=== PATIENT | male | born 2000 | race Caucasian/White ===

== ENCOUNTER 2022-03-16 23:14 | Outpatient (CLI) | payer OTHER | END 2022-03-16 23:59 | disposition critical access hospital (66) | LOC: EMS 23:14 | DX: F41.9 Anxiety disorder, unspecified (principal) | CPT/HCPCS: A0425; A0427 ==

== ENCOUNTER 2022-03-16 23:42 | Emergency (ER) | payer OTHER ==
[2022-03-17 00:20] LABS: BASOPHILS % (AUTO) 0.5 %; EOSINOPHILS % (AUTO) 0.7 %; HCT - HEMATOCRIT 39.4 % (42.0-52.0); HGB - HEMOGLOBIN 12.7 g/dL (14.0-18.0); LYMPHOCYTES # (AUTO) 1.4 10^3/uL (1.5-3.5); LYMPHOCYTES % (AUTO) 26.3 %; MEAN CORPUSCULAR HGB CONC 32.2 g/dL (32.0-36.0); MEAN CORPUSCULAR VOLUME 86.8 fL (80.0-94.0); MEAN PLATELET VOLUME 10.3 fL (7.4-11.4); MONOCYTES # (AUTO) 0.5 10^3/uL (0.0-1.0); MONOCYTES % (AUTO) 9.1 %; NEUTROPHILS # (AUTO) 3.4 10^3/uL (1.5-6.6); PLT - PLATELET COUNT 273 10^3/uL (130-450); RED BLOOD COUNT 4.54 10^6/uL (4.70-6.10); RED CELL DISTRIBUTION WIDTH 11.5 % (12.0-15.0); WHITE BLOOD COUNT 5.5 x10^3/uL (4.8-10.8)
[2022-03-17 00:31] LABS: ALBUMIN 4.2 g/dL (3.2-5.5); ALBUMIN/GLOBULIN RATIO 1.5 (1.0-2.2); BILIRUBIN,TOTAL 0.3 mg/dL (0.2-1.0); CALCIUM 8.9 mg/dL (8.5-10.3); CREATININE 0.8 mg/dL (0.6-1.2); POTASSIUM 3.3 mmol/L (3.5-5.0)
--- NOTE | 2022-03-17 00:34 | XRAY Report ---
PROCEDURE: Chest 1 View X-Ray INDICATIONS: NEW SEIZURE TECHNIQUE: One view of the chest was acquired. COMPARISON: None. FINDINGS: Surgical changes and devices: None. Lungs and pleura: No pleural effusions or pneumothorax. Lungs are clear. Mediastinum: Mediastinal contours appear normal. Heart size is normal. Bones and chest wall: No suspicious bony lesions. Overlying soft tissues appear unremarkable. IMPRESSION: No acute cardiopulmonary process demonstrated radiographically. Reviewed by: Areil Mata MD on 03/17/2022 12:33 AM PDT Approved by: Ariel Mata MD on 03/17/2022 12:33 AM PDT Station ID: [id number]
--- NOTE | 2022-03-17 01:01 | CT Report ---
PROCEDURE: HEAD WO INDICATIONS: NEW SEIZURE ACTIVITY TECHNIQUE: Noncontrast 4.5 mm thick angled axial sections acquired from the foramen magnum to the vertex. For r adiation dose reduction, the following was used: automated exposure control, adjustment of mA and/or kV according to patient size. COMPARISON: None. FINDINGS: Image quality: Excellent. CSF spaces: Basal cisterns are patent. No extra-axial fluid collections. Ventricles are normal in size and shape. Brain: No midline shift. No intracranial masses or hemorrhage. Rahman-white matter interface is norm al. Skull and face: Calvarium and visualized facial bones are intact, without suspicious lesions. Sinuses: Visualized sinuses and mastoids are clear. IMPRESSION: No acute intracranial abnormality demonstrated. Reviewed by: Ariel Mata MD on 03/17/2022 12:59 AM PDT Approved by: Ariel Mata MD on 03/17/2022 12:59 AM PDT Station ID: [id number]
[2022-03-17 02:22] LABS: MUDS CUTOFF CONCENTRATIONS CUTOFF CONC BELOW:
[2022-03-17 02:32] LABS: BILIRUBIN,URINE NEGATIVE (NEGATIVE); GLUCOSE, URINE (UA) NEGATIVE (NEGATIVE); KETONES,URINE (UA) NEGATIVE (NEGATIVE); LEUKOCYTE ESTERASE, URINE NEGATIVE (NEGATIVE); NITRITE,URINE NEGATIVE (NEGATIVE); OCCULT BLOOD,URINE NEGATIVE (NEGATIVE); PROTEIN,URINE NEGATIVE (NEGATIVE); UROBILINOGEN,URINE 0.2 (NORMAL) E.U./dL (NORMAL)
[2022-03-17 02:35] LABS: CLARITY,URINE CLEAR (CLEAR)
[2022-03-17 02:42] LABS: AMPHETAMINE SCREEN,URINE NEGATIVE (NEGATIVE); BARBITURATE SCREEN,UR NEGATIVE (NEGATIVE); BENZODIAZEPINES SCREEN, URINE POSITIVE (NEGATIVE); COCAINE SCREEN URINE NEGATIVE (NEGATIVE); METHADONE SCREEN, URINE NEGATIVE (NEGATIVE); METHAMPHETAMINES SCREEN, URINE NEGATIVE (NEGATIVE); OPIATE SCREEN, URINE NEGATIVE (NEGATIVE); OXYCODONE SCREEN, URINE NEGATIVE (NEGATIVE); PROPOXYPHENE SCREEN, URINE NEGATIVE (NEGATIVE); THC CANNABINOID SCREEN, URINE NEGATIVE (NEGATIVE); TRICYCLIC ANTIDEPRESSANT,URINE NEGATIVE (NEGATIVE)
--- NOTE | 2022-03-17 02:49 | ED Physician Documentation ---
PD HPI SEIZURE - Stated complaint Stated Complaint: SEIZURE - Chief complaint Chief Complaint: Neuro - History obtained from History obtained from: Patient, EMS - History of Present Illness Timing - onset: Yesterday Witnessed: Witnessed - Additional information Additional information: 22-year-old male with past medical history of anxiety and depression presents for an evaluation of possible seizure. EMS states that the roommates went to check on the patient after hearing a thump, and they found him on the floor not responding. Patient states that he felt like he was having a weird dream where he could not move. He states that the next thing that he knows he was waking up and there were lots of people around him including EMS personnel. He does not remember falling out of bed. Denies biting his tongue, urinating on himself. EMS states that when they arrived the patient appeared confused for several minutes, and then appeared to return to baseline. Vital signs in route to ER were significant only for sinus tachycardia, glucose within normal limits. Patient currently denies any complaints. He states that he has been in his normal state of health until today. Review of Systems Ten Systems: 10 systems reviewed and negative Constitutional: denies: Fever, Chills, Myalgias Eyes: denies: Loss of vision, Decreased vision, Photophobia Ears: denies: Loss of hearing, Ear pain, Drainage/discharge Nose: denies: Rhinorrhea / runny nose, Foreign Body Throat: denies: Dental pain / toothache, Oral lesions / sores, Sore throat Cardiac: denies: Chest pain / pressure, Palpitations Respiratory: denies: Dyspnea Neurologic: reports: Seizure (possible). denies: Generalized weakness, Focal weakness, Numbness PD PAST MEDICAL HISTORY - Past Medical History Past Medical History: No - Allergies Allergies/Adverse Reactions: Allergies Allergy/AdvReac Type Severity Reaction Status Date / Time Sulfa (Sulfonamide AdvReac Unknown Verified 03/17/22 03:34 Antibiotics) PD ED PE NORMAL - Vitals Vital signs reviewed: Yes - General General: Alert and oriented X 3, No acute distress, Well developed/nourished - HEENT HEENT: Atraumatic, EOMI, Ears normal, Moist mucous membranes - Neck Neck: Supple, no meningeal sign, No bony TTP, Thyroid normal - Cardiac Cardiac: RRR, No murmur, Strong equal pulses - Respiratory Respiratory: No respiratory distress, Clear bilaterally - Abdomen Abdomen: Soft, Non tender, Non distended - Back Back: No CVA TTP, No spinal TTP - Derm Derm: Normal color, Warm and dry, No rash - Extremities Extremities: No deformity, No tenderness to palpate, Normal ROM s pain - Neuro Neuro: Alert and oriented X 3, triage rn 2-12 intact, No motor deficit, No sensory deficit, Normal speech - Psych Psych: Normal mood, Normal affect Results - Vitals Vitals: Vital Signs - 24 hr 03/17/22 03/17/22 03/17/22 01:23 01:37 03:07 Temperature 98.1 C H 36.7 C Heart Rate 85 85 Respiratory 18 18 16 Rate Blood Pressure 135/67 H 135/67 H 137/70 H O2 Saturation 97 97 97 03/17/22 03:35 Temperature 36.7 C Heart Rate 85 Respiratory 16 Rate Blood Pressure 137/70 H O2 Saturation 97 Oxygen O2 Source Room air - Labs Labs: Laboratory Tests 03/17/22 03/17/22 03/17/22 00:08 00:08 00:08 WBC 5.5 RBC 4.54 L Hgb 12.7 L Hct 39.4 L MCV 86.8 MCH 28.0 MCHC 32.2 RDW 11.5 L Plt Count 273 MPV 10.3 Neut # (Auto) 3.4 Lymph # (Auto) 1.4 L [place] # (Auto) 0.5 Eos # (Auto) 0.0 Baso # (Auto) 0.0 Absolute Nucleated RBC 0.00 Nucleated RBC % 0.0 Sodium 140 Potassium 3.3 L Chloride 103 Carbon Dioxide 26 Anion Gap 11.0 BUN 12 Creatinine 0.8 Estimated GFR (MDRD) 121 Glucose 116 H Calcium 8.9 Total Bilirubin 0.3 AST 17 ALT 15 Alkaline Phosphatase 57 Total Protein 7.0 Albumin 4.2 Globulin 2.8 Albumin/Globulin Ratio 1.5 TSH < 0.08 L Urine Color Urine Clarity Urine pH Ur Specific [place] Urine Protein Urine Glucose (UA) Urine Ketones Urine Occult Blood Urine Nitrite Urine Bilirubin Urine Urobilinogen Ur Leukocyte Esterase Ur Microscopic Review Urine Culture Comments Urine Opiates Screen Ur Oxycodone Screen Urine Methadone Screen Ur Propoxyphene Screen Ur Barbiturates Screen Ur Tricyclics Screen Ur Phencyclidine Scrn Ur Amphetamine Screen U Methamphetamines Scrn U Benzodiazepines Scrn Urine Cocaine Screen U Cannabinoids Screen 03/17/22 02:16 WBC RBC Hgb Hct MCV MCH MCHC RDW Plt Count MPV Neut # (Auto) Lymph # (Auto) [place] # (Auto) Eos # (Auto) Baso # (Auto) Absolute Nucleated RBC Nucleated RBC % Sodium Potassium Chloride Carbon Dioxide Anion Gap BUN Creatinine Estimated GFR (MDRD) Glucose Calcium Total Bilirubin AST ALT Alkaline Phosphatase Total Protein Albumin Globulin Albumin/Globulin Ratio TSH Urine Color YELLOW Urine Clarity CLEAR Urine pH 6.0 Ur Specific [place] >=1.030 H Urine Protein NEGATIVE Urine Glucose (UA) NEGATIVE Urine Ketones NEGATIVE Urine Occult Blood NEGATIVE Urine Nitrite NEGATIVE Urine Bilirubin NEGATIVE Urine Urobilinogen 0.2 (NORMAL) Ur Leukocyte Esterase NEGATIVE Ur Microscopic Review NOT INDICATED Urine Culture Comments NOT INDICATED Urine Opiates Screen NEGATIVE Ur Oxycodone Screen NEGATIVE Urine Methadone Screen NEGATIVE Ur Propoxyphene Screen NEGATIVE Ur Barbiturates Screen NEGATIVE Ur Tricyclics Screen NEGATIVE Ur Phencyclidine Scrn NEGATIVE Ur Amphetamine Screen NEGATIVE U Methamphetamines Scrn NEGATIVE U Benzodiazepines Scrn POSITIVE H Urine Cocaine Screen NEGATIVE U Cannabinoids Screen NEGATIVE PD MEDICAL DECISION MAKING - ED course ED course: Transported with concern for possible seizure. Based on description of events could be seizure, however no reports of abnormal movements described by EMS. Patient currently at baseline, denies wetting himself, denies tongue biting. States that he feels fine and in his usual state of health. CT, chest x-ray, labs were performed. Patient has low TSH levels, however all other work-up is unremarkable. Patient counseled that it cannot be definitively said that he does or does not have a seizure disorder. He will need to follow-up with a neurologist for further investigation of today's events. In the meantime until being seen by neurology the patient was counseled that he should not drive, operate heavy machinery, swim unattended, take baths, or otherwise perform any activity that could cause harm to himself or other people if he were to suddenly lose consciousness. Patient expressed understanding of plan and is in agreement at this time. All questions answered at the time of discharge. Departure - Departure Disposition: 01 Home, Self Care Clinical Impression: Seizure-like activity Condition: Stable Instructions: Epilepsy Safety During Seizure, First Aid Seizures Comments: You were seen today for possible seizure-like activity. Your work-up today was negative including lab work and CT scan. I do not have a reason for this event. At this time you are safe to be discharged home. You need to follow-up with a neurologist for further investigation of this episode. Until you are seen and evaluated by a neurologist it should be presumed that you have had a seizure. You should not drive, operate heavy machinery, swim, take a bath, or perform any activity where sudden loss of consciousness could result in harm to you or someone else. Discharge Date/Time: 03/17/22 03:35
[2022-03-17 03:16] VITALS: BP 137/70
== END 2022-03-17 03:35 | disposition home or self-care (01) ==
LOC: EDBD → ED 23:42
DX: R56.9 Unspecified convulsions (principal)
CPT/HCPCS: 36415; 80053; 80306; 81001; 81003; 84443; 85025; 87086; 93005; 99284

== ENCOUNTER 2022-04-17 23:50 | Outpatient (CLI) | payer OTHER | END 2022-04-17 23:51 | disposition EMS.NT | LOC: EMS 23:50 | DX: R45.89 Other symptoms and signs involving emotional state (principal) ==

== ENCOUNTER 2022-04-18 00:56 | Emergency (ER) | payer OTHER ==
[2022-04-18 01:25] LABS: BASOPHILS % (AUTO) 0.5 %; EOSINOPHILS # (AUTO) 0.1 10^3/uL (0.0-0.7); EOSINOPHILS % (AUTO) 1.1 %; HCT - HEMATOCRIT 36.6 % (42.0-52.0); LYMPHOCYTES # (AUTO) 1.7 10^3/uL (1.5-3.5); LYMPHOCYTES % (AUTO) 29.8 %; MEAN CORPUSCULAR HEMOGLOBIN 28.2 pg (27.0-31.0); MEAN CORPUSCULAR HGB CONC 32.8 g/dL (32.0-36.0); MEAN CORPUSCULAR VOLUME 85.9 fL (80.0-94.0); MEAN PLATELET VOLUME 10.9 fL (7.4-11.4); MONOCYTES # (AUTO) 0.5 10^3/uL (0.0-1.0); MONOCYTES % (AUTO) 9.1 %; NEUTROPHILS # (AUTO) 3.4 10^3/uL (1.5-6.6); NEUTROPHILS % (AUTO) 59.3 %; PLT - PLATELET COUNT 247 10^3/uL (130-450); RED BLOOD COUNT 4.26 10^6/uL (4.70-6.10); RED CELL DISTRIBUTION WIDTH 12.4 % (12.0-15.0); WHITE BLOOD COUNT 5.7 x10^3/uL (4.8-10.8)
[2022-04-18 01:39] LABS: ALBUMIN 4.2 g/dL (3.2-5.5); ALBUMIN/GLOBULIN RATIO 1.8 (1.0-2.2); BILIRUBIN,TOTAL 0.4 mg/dL (0.2-1.0); CALCIUM 8.7 mg/dL (8.5-10.3); CREATININE 0.9 mg/dL (0.6-1.2); POTASSIUM 3.3 mmol/L (3.5-5.0); TOTAL PROTEIN 6.5 g/dL (6.7-8.2)
--- NOTE | 2022-04-18 03:06 | ED Physician Documentation ---
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 Per EMS report, patient's roommate woke to find patient acting oddly, fell out of the bed but no report of shaking of body/limbs and no description of post-ictal state. Patient says he thinks he could hear roommate talking during the episode but not certain of this. He arrives asymptomatic. He was T+R last month for similar episode. Has not been seen in follow up yet. Review of Systems Eyes: reports: Reviewed and negative Cardiac: reports: Reviewed and negative Respiratory: reports: Reviewed and negative GI: reports: Reviewed and negative : denies: Incontinent Musculoskeletal: reports: Reviewed and negative Neurologic: reports: Altered mental status. denies: Generalized weakness, Focal weakness, Numbness, Headache, Head injury, LOC PD PAST MEDICAL HISTORY - Past Medical History Past Medical History: Yes Neuro: Seizure disorder Psych: Anxiety - Allergies Allergies/Adverse Reactions: Allergies Allergy/AdvReac Type Severity Reaction Status Date / Time Sulfa (Sulfonamide AdvReac Unknown Verified 04/18/22 01:05 Antibiotics) - Social History Does the pt smoke?: No Smoking Status: Never smoker PD ED PE NORMAL - Vitals Vital signs reviewed: Yes - General General: Alert and oriented X 3, No acute distress, Well developed/nourished - HEENT HEENT: Atraumatic, PERRL, EOMI, Moist mucous membranes, Pharynx benign (no tongue bite/abrasion) - Neck Neck: No bony TTP - Cardiac Cardiac: RRR, No murmur - Respiratory Respiratory: No respiratory distress, Clear bilaterally - Abdomen Abdomen: Soft, Non tender - Derm Derm: Normal color, Warm and dry - Extremities Extremities: No edema - Neuro Neuro: Alert and oriented X 3, security guards dispatcher 2-12 intact, No motor deficit, No sensory deficit, Normal speech Eye Opening: Spontaneous Motor: Obeys Commands Verbal: Oriented GCS Score: 15 Results - Vitals Vitals: Oxygen O2 Source Room air - Labs Labs: Laboratory Tests 04/18/22 04/18/22 01:16 01:16 WBC 5.7 RBC 4.26 L Hgb 12.0 L Hct 36.6 L MCV 85.9 MCH 28.2 MCHC 32.8 RDW 12.4 Plt Count 247 MPV 10.9 Neut # (Auto) 3.4 Lymph # (Auto) 1.7 [place] # (Auto) 0.5 Eos # (Auto) 0.1 Baso # (Auto) 0.0 Absolute Nucleated RBC 0.00 Nucleated RBC % 0.0 Sodium 135 Potassium 3.3 L Chloride 101 Carbon Dioxide 26 Anion Gap 8.0 BUN 12 Creatinine 0.9 Estimated GFR (MDRD) 106 Glucose 97 Calcium 8.7 Total Bilirubin 0.4 AST 17 ALT 14 Alkaline Phosphatase 53 Total Protein 6.5 L Albumin 4.2 Globulin 2.3 Albumin/Globulin Ratio 1.8 Lipase 27 PD MEDICAL DECISION MAKING - ED course Complexity details: reviewed old records, reviewed results, re-evaluated patient, considered differential, d/w patient ED course: No radiologic testing performed tonight, as patient had similar episode one month ago and at that time had normal CTH, CXR; these are unlikely to have changed over on month given similar presentation. Basic blood tests tonight are unremarkable (incidental note of mild hypokalemia). I d/w patient that nature of tonight's episode is unclear, but seizure is a possibility. The lack of roommate's presence in ED makes some of the information gathered third-hand (roommate told EMS told me, for example). I explained to patient that it would be best to follow same recommendations as were given on discharge sheets from last month's visit, which includes (until cleared to do so by either his primary care provider or appropriate specialist such as a neurologist) no driving, swimming, taking baths, operating heavy machinery, nor any other activity that would pose risk to self and/or others if he were to suddenly have LOC (such as standing on roof or ladder). Because the description of tonight's event does not sound as suggestive of a seizure as the description of the previous visit did, I did not prescribe anti-seizure medication at this time. I emphasized the need for him to follow up for possible EEG as soon as possible. Departure - Departure Disposition: 01 Home, Self Care Clinical Impression: Seizure-like activity Condition: Good Instructions: ED Symptoms No Dx Comments: The results of tonight's tests are unremarkable. The cause of this episode tonight is not apparent. Seizure remains a possible explanation, and you need to follow up with a neurologist for reevaluation. Contact your primary care provider to discuss the referral process. Until you are cleared by a neurologist to do so, you must avoid driving, swimming, baths (showers are fine), and operating heavy machinery. Discharge Date/Time: 04/18/22 03:38
[2022-04-18 03:36] VITALS: BP 110/70
== END 2022-04-18 03:38 | disposition home or self-care (01) ==
LOC: ED 00:56
DX: R25.1 Tremor, unspecified (principal)
CPT/HCPCS: 36415; 80053; 83690; 85025; 99282; 99283

== ENCOUNTER 2022-05-21 12:58 | Outpatient (CLI) | payer OTHER ==
[2022-05-21 13:49] VITALS: BP 160/70
--- NOTE | 2022-05-21 13:49 | SLEEP CARE CONSULTATION ---
Information from patient questionnaire entered by Karen Gonzáles. I have reviewed and concur with the information entered by Karen Gonzáles. This document represents the service I personally performed and the decisions made by me, Emmanuel Duarte MD, [facility]. History of Present Illness Service Date and Time: 05/21/2022 1258 Reason for Visit: New patient Chief Complaint: reports: Unrefreshed sleep, Fatigue Date of Onset: LAST 3 OR SO MONTHS Usual bedtime: 10-12 Time it takes to fall asleep: AN HOUR Snores at night: No Observed to quit breathing while asleep: No Sleeps alone due to snoring: No Number of times waking at night: N/A Toss, Turn, or Twitch while sleeping: Yes Recalls having dreams: Yes Usually gets out of bed at: 7 Feels refreshed in the morning: No Morning headache: No Sleepy or fatigued during the day: Yes Ever fallen asleep while driving: No Takes day naps: Yes Dreams during day naps: No Prior sleep studies: No Additional HPI information: I had the pleasure of seeing Mr. Bell today regarding the possibility of him having a sleep disorder. As you know, he is a 22-year-old gentleman who complains of acting out dreams starting about a year ago. He says that the movement involves his arms and legs. A lot of times he can remember dreams that explain the movement. He does not wake up confused. He denies incontinence. He has never left the bed in his sleep. No injury reported. He was started on fluoxetine and buspirone about 3 months ago. He said they help with panic attacks. He reports having had rare sleep paralysis. The patient tells me that he normally goes to bed around midnight, and it takes him approximately 60 minutes to fall asleep. He does not snore. He has never been observed to stop breathing in his sleep. He has a roommate. He does not usually wake up during the night. In the morning he usually gets up out of the bed around 9 a.m. not feeling refreshed nor rested. He usually does not have a morning headache. During the day he complains of feeling sleepy and fatigued. His score on Watson Sleepiness Scale is 3 out of 24. He never has fallen asleep while driving nor has had any accident due to sleepiness. 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 Patient is Single and lives in . Have you smoked in the past 12 months: No Alcohol use: Yes Alcohol amount and frequency: 3-4 BEERS EVERY WEEKEND AND A COUPLE TIMES DURING THE WEEK Caffeine use: Yes Caffeine amount and frequency: A CUP IN THE MORNING Family History Family history of sleep disordered breathing: Yes Family Hx Sleep Apnea: Father: Snoring, Sleep apnea - Treated Allergies and Home Medications Known drug allergies: Yes Drug allergies reviewed: Yes Home medication list reviewed: Yes Allergy and home medication list: Allergies Sulfa (Sulfonamide Antibiotics) Adverse Reaction (Verified 04/18/22 01:05) Unknown Review of Systems Review of systems same as previous: Yes Cardiovascular: denies: high blood pressure, palpitations, chest pain, irregular heart rate or pulse, leg or foot swelling, have to sleep sitting up, other Respiratory: denies: shortness of breath, wheeze, sputum production, chronic cough, other Gastrointestinal: denies: heartburn, difficulty swallowing, nausea, vomitting, diarrhea, abdominal pain, other Urinary: reports: incontinence Neurological: denies: headaches, seizure, head trauma, disorientation, speech dysfunction, gait or balance problems, fainting or unconsciousness, other Psychiatric: reports: anxiety, depression Ear/Nose/Throat: denies: nasal congestion, sinus problems, nose bleeds, dry mouth/throat, hoarseness, injury to nose, tonsillectomy, wisdom teeth removed, other Endocrine: denies: thyroid disease, history of goiter, sluggishness, too hot or cold, excessive thirst, increased appetite, increased urination, unexplained weakness, other Musculoskeletal: denies: joint pain, neck pain, back pain, joint swelling, muscle pain or cramping, mobility problems, other Immunologic: denies: sneezing, rash, itching, allergies to food or environment, other Physical Exam Vital signs obtained and entered by: LISSETTE WEBSTER Blood Pressure: 160/70 (LEFT ARM ) Cuff size: regular Heart Rate: 92 O2 Saturation: 96 Height: 5 ft 11 in Weight: 170 lb Body Mass Index: 23.7 BMI Classification: Normal Neck circumference: 14.5 (INCHES ) Mood/affect: Normal HEENT: No craniofacial malformation Nostrils: patent to airflow Turbinates: normal Septum: midline Mouth and throat: normal Soft palate: normal Hard palate: normal Uvula: normal Uvula visualization: 100% Mallampati Class I Tongue: normal in size Tonsils: small Chin and jaw: normal size and position Neck: normal w/o lymphadenopathy or thyromegaly Heart: regular rate and rhythm Lungs: clear bilaterally Abdomen: soft, non-tender Extremities: no edema or clubbing Neurologic: intact, no focal deficits Impression and Plan IMPRESSION: 1. Possible REM behavior disorder. REM parasomnias are less common than non-REM in younger populations and will need further workup. The condition may be aggravated by insufficient sleep. Nocturnal seizure needs to be ruled out. Therefore, I will order an in-laboratory polysomnography with parasomnia montage. Plan: 1. Schedule an in-laboratory polysomnography. 2. Avoid long distance driving or when feeling sleepy. 3. Avoid alcohol, sedative and muscle relaxant around bedtime. 4. Return for follow up after the sleep study. Follow up with Sleep Care in: 1-2 months Visit Type: In Office Time Spent with Patient (minutes): 15 Provider Statement: I spent 100% of the Face to Face Visit with the patient with greater than 50% spent counseling the patient and coordination of care.
== END 2022-05-21 12:59 | disposition home or self-care (01) ==
LOC: SC 12:58
PROVIDERS: ATTEND Internal Medicine Pulmonary Disease
DX: G47.10 Hypersomnia, unspecified (principal); F51.3 Sleepwalking [somnambulism]; G47.8 Other sleep disorders; F32.A Depression, unspecified
CPT/HCPCS: 99202; 99212

== ENCOUNTER 2022-06-05 19:30 | Outpatient (CLI) | payer OTHER | END 2022-06-05 19:31 | disposition home or self-care (01) | LOC: SC 19:30 | PROVIDERS: ATTEND Internal Medicine Pulmonary Disease | DX: G47.10 Hypersomnia, unspecified (principal); F51.3 Sleepwalking [somnambulism]; G47.8 Other sleep disorders; F32.A Depression, unspecified | CPT/HCPCS: 95810 ==

== ENCOUNTER 2022-07-01 20:00 | Emergency (ER) | payer OTHER ==
--- OUTSIDE RECORDS SUMMARY | 2022-07-01 20:28 | EXTERNAL MEDICAL SUMMARY RPT | Continuity of Care Document ---
:2000 Author Organization [facility] Address [address] [id number] Phone Care Team Providers Name Role Phone Unavailable Unavailable Unavailable Joey Chavarria, Jaison Unavailable Unavailable Jody Chavarria, Ronaldo Unavailable Unavailable Allergies and Intolerances date description facility type (no date) [facility] All (unknown) Encounters No information. Functional Status No information. Immunizations No information. Medications date description facility [id number]+0000 zolpidem All [id number]+0000 zolpidem All [id number]+0000 ondansetron All 25515768396541+0000 ondansetron All [id number]+0000 loperamide All [id number]+0000 loperamide All 18906539264777+0000 zolpidem All [id number]+0000 zolpidem All 66531030301606+0000 loperamide All 64810224160912+0000 loperamide All 33842682288624+0000 ondansetron All 41326207945122+0000 ondansetron All 13859809192360+0000 loperamide All 97071727157338+0000 loperamide All 98998412173986+0000 ondansetron All 88921845603996+0000 ondansetron All 66626012051271+0000 zolpidem All 62123636471078+0000 zolpidem All 03981529976343+0000 ondansetron All 13574460677674+0000 ondansetron All 67288895725773+0000 zolpidem All 71708849156009+0000 zolpidem All Problems No information. Procedures date description facility [id number]+0000 Visit Code Hold All [id number]+0000 Visit Code Hold All 91500178090732+0000 Visit Code Hold All 14508757539382+0000 COVID, FLU A+B Antigen (In Clinic Free Test) All Results/Labs No information. Social History date description facility [id number]+0000 Unknown if ever smoked All [id number]+0000 Unknown if ever smoked All 43121902529988+0000 Unknown if ever smoked All 62876243919637+0000 Unknown if ever smoked All Vital Signs date measurement value units 24834355566813+0000 BMI BMI 24.51 kg/m2 96720011765385+0000 BP_diastolic BP_diastolic 92 mmHg 34568366900999+0000 BP_systolic BP_systolic 146 mmHg 93418235060985+0000 heart_rate heart_rate 65 /min 16477348395246+0000 height_metric height_metric 177.8 cm 59925677432837+0000 height_standard height_standard 70 in 77091334969560+0000 respiration_rate respiration_rate 16 /min 92773486654211+0000 temperature_metric temperature_metric 36.78 C 21283748449533+0000 temperature_standard temperature_standard 9 8.2 F 58804524739078+0000 weight_metric weight_metric 77.2 kg 12105412395396+0000 weight_standard weight_standard 170.2 lb 87137473712222+0000 BMI BMI 25.92 kg/m2 81701130006056+0000 BP_diastolic BP_diastolic 80 mmHg 69492976342591+0000 BP_systolic BP_systolic 145 mmHg 25857215173654+0000 heart_rate heart_rate 66 /min 91144917288853+0000 height_metric height_metric 177.8 cm 99648567318575+0000 height_standard height_standard 70 in 45956760320478+0000 respiration_rate respiration_rate 16 /min 90950728831560+0000 temperature_metric temperature_metric 37.33 C 22711806682951+0000 temperature_standard temperature_standard 9 9.2 F 42942651806420+0000 weight_metric weight_metric 81.65 kg 82484093082752+0000 weight_standard weight_standard 180 lb
--- NOTE | 2022-07-01 21:39 | CT Report ---
PROCEDURE: HEAD WO INDICATIONS: heavy etoh, forehead abrasion TECHNIQUE: Noncontrast 4.5 mm thick angled axial sections acquired from the foramen magnum to the vertex. For r adiation dose reduction, the following was used: automated exposure control, adjustment of mA and/or kV according to patient size. COMPARISON: CT head 03/17/2022. FINDINGS: Image quality: Excellent. CSF spaces: Basal cisterns are patent. No extra-axial fluid collections. Ventricles are normal in size and shape. Brain: No intracranial hemorrhage, mass, or mass effect. Rahman-white matter interface appears preser ratna. Skull and face: Calvarium and visualized facial bones are intact, without suspicious lesions. Sinuses: Visualized sinuses and mastoids are clear. IMPRESSION: 1. No acute intracranial abnormality. Reviewed by: Humza Gillette MD on 07/01/2022 9:38 PM [facility] Approved by: Humza Gillette MD on 07/01/2022 9:38 PM [facility] Station ID: [id number]
--- NOTE | 2022-07-01 21:41 | CT Report ---
PROCEDURE: CERVICAL SPINE WO INDICATIONS: fall in shower after drinking TECHNIQUE: Noncontrast 3 mm thick sections acquired from the skull base to the T4 level. Sagittal and coronal r eformats were then constructed. For radiation dose reduction, the following was used: automated exp osure control, adjustment of mA and/or kV according to patient size. COMPARISON: None. FINDINGS: Image quality: Excellent. Bones: No fractures or subluxation. There is mild straightening of the cervical lordosis. Visualized superior ribs are intact. Soft tissues: Prevertebral soft tissues are normal in thickness. No paravertebral hematomas. No ap ical pneumothoraces. IMPRESSION: 1. No fracture or subluxation. Reviewed by: Humza Gillette MD on 07/01/2022 9:40 PM [facility] Approved by: Humza Gillette MD on 07/01/2022 9:40 PM [facility] Station ID: [id number]
--- NOTE | 2022-07-01 22:23 | ED Physician Documentation ---
History of Present Illness - Stated complaint Stated Complaint: HEAD LAC - Chief complaint Chief Complaint: Laceration - History obtained from History obtained from: Patient - Additonal information Additional information: 22-year-old man Presents with multiple abrasions to forehead after falling in the shower. Patient was intoxicated with alcohol at that time and states he has been heavily drinking couple of days. Also has older abrasion to left abdomen from fall couple of days ago. Review of Systems Skin: reports: Abrasion (s) Neurologic: reports: Head injury, Other (alcohol use) PD PAST MEDICAL HISTORY - Past Medical History Past Medical History: Yes Neuro: Seizure disorder Psych: Depression, Anxiety - Past Surgical History Past Surgical History: Yes HEENT: Tonsil/Adenoidectomy - Present Medications Home Medications: Ambulatory Orders Medication Instructions Recorded Confirmed Buspirone HCl 10 mg PO BID 07/01/22 07/01/22 Fluoxetine HCl 60 mg PO DAILY 07/01/22 07/01/22 Loperamide [Imodium] 4 mg PO TID PRN 07/01/22 07/01/22 - Allergies Allergies/Adverse Reactions: Allergies Allergy/AdvReac Type Severity Reaction Status Date / Time Sulfa (Sulfonamide AdvReac Unknown Verified 07/01/22 20:11 Antibiotics) - Social History Does the pt smoke?: No Smoking Status: Never smoker Does the pt drink ETOH?: Yes ETOH Use: Liquor Does the pt have substance abuse?: No - Immunizations Immunizations are current?: Yes - POLST Patient has POLST: No PD ED PE NORMAL - Vitals Vital signs reviewed: Yes - General General: Alert and oriented X 3, No acute distress, Well developed/nourished - HEENT HEENT: Atraumatic, PERRL, EOMI, Moist mucous membranes, Pharynx benign - Neck Neck: No bony TTP - Derm Derm: Normal color, Warm and dry, Other (abrasions to forehead, fresh appearing. 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 No FND. CT head/neck noncontributory. He will have a friend from the [employer] come and pick him up. Advised him to follow-up with [facility] and To abstain from drinking. Return precautions given. Departure - Departure Disposition: 01 Home, Self Care Clinical Impression: Head injury, Alcohol abuse, Fall in shower Condition: Stable Instructions: ED Head Injury Closed Comments: You were seen in the ED after head injury. Your CT of the head and neck showed no injuries. Please clean your scrapes with soap and water and check daily for signs of infection[place] Consider cutting back on or abstaining from alcohol.
[2022-07-01 22:31] VITALS: BP 144/85
== END 2022-07-01 22:31 | disposition home or self-care (01) ==
LOC: EDUNIT# → ED 20:00
DX: S01.81XA Laceration without foreign body of other part of head, initial encounter (principal); S09.90XA Unspecified injury of head, initial encounter; W18.2XXA Fall in (into) shower or empty bathtub, initial encounter; Y93.E1 Activity, personal bathing and showering; F10.10 Alcohol abuse, uncomplicated
CPT/HCPCS: 99282; 99284

== ENCOUNTER 2022-07-02 01:36 | Emergency (ER) | payer OTHER ==
--- OUTSIDE RECORDS SUMMARY | 2022-07-02 01:57 | EXTERNAL MEDICAL SUMMARY RPT | Continuity of Care Document ---
:2000 Author Organization [facility] Address [address] [phone] Phone Care Team Providers Name Role Phone Unavailable Unavailable Unavailable Joey Chavarria, Jaison Unavailable Unavailable Jody Chavarria, Rnoaldo Unavailable Unavailable Allergies and Intolerances date description facility type (no date) [facility] All (unknown) Encounters No information. Functional Status No information. Immunizations No information. Medications date description facility [id number]+0000 zolpidem All 34594484418510+0000 zolpidem All 05498329941023+0000 ondansetron All 21986498659728+0000 ondansetron All 26753563848193+0000 loperamide All 74862098974456+0000 loperamide All 86345828905494+0000 zolpidem All 63263154729516+0000 zolpidem All 25706742407771+0000 loperamide All 45856662807343+0000 loperamide All 84207166331644+0000 ondansetron All 72088172272131+0000 ondansetron All 03905216154308+0000 loperamide All 62666684389034+0000 loperamide All 85567464545746+0000 ondansetron All 87148164989580+0000 ondansetron All 31394386152927+0000 zolpidem All 80761420791528+0000 zolpidem All 98467103292441+0000 ondansetron All 76933806217849+0000 ondansetron All 68678939402267+0000 zolpidem All 85375933787984+0000 zolpidem All Problems No information. Procedures date description facility [id number]+0000 Visit Code Hold All 45265850565933+0000 Visit Code Hold All 75007682658167+0000 Visit Code Hold All 15039104735771+0000 COVID, FLU A+B Antigen (In Clinic Free Test) All Results/Labs No information. Social History date description facility [id number]+0000 Unknown if ever smoked All 98865851254680+0000 Unknown if ever smoked All 98669176629992+0000 Unknown if ever smoked All 68678146071983+0000 Unknown if ever smoked All Vital Signs date measurement value units 65165151289737+0000 BMI BMI 24.51 kg/m2 72475949549466+0000 BP_diastolic BP_diastolic 92 mmHg 83343700598520+0000 BP_systolic BP_systolic 146 mmHg 49092189234967+0000 heart_rate heart_rate 65 /min 54118824574641+0000 height_metric height_metric 177.8 cm 60960150514593+0000 height_standard height_standard 70 in 35707998963342+0000 respiration_rate respiration_rate 16 /min 25777064345008+0000 temperature_metric temperature_metric 36.78 C 95318971095718+0000 temperature_standard temperature_standard 9 8.2 F 09417899148445+0000 weight_metric weight_metric 77.2 kg 33405492124048+0000 weight_standard weight_standard 170.2 lb 18244181352545+0000 BMI BMI 25.92 kg/m2 24986372594218+0000 BP_diastolic BP_diastolic 80 mmHg 96560061933218+0000 BP_systolic BP_systolic 145 mmHg 94380872193626+0000 heart_rate heart_rate 66 /min 38028785964173+0000 height_metric height_metric 177.8 cm 54454242546007+0000 height_standard height_standard 70 in 41785992493223+0000 respiration_rate respiration_rate 16 /min 65030533160514+0000 temperature_metric temperature_metric 37.33 C 30956949423585+0000 temperature_standard temperature_standard 9 9.2 F 34481128447061+0000 weight_metric weight_metric 81.65 kg 86590285672346+0000 weight_standard weight_standard 180 lb
[2022-07-02] MEDS ORDERED: SODIUM CHLORIDE 0.9% 1,000 ML IV STA (02:03)
--- NOTE | 2022-07-02 02:12 | ED Physician Documentation ---
History of Present Illness - Stated complaint Stated Complaint: INTOX - Chief complaint Chief Complaint: Neuro - History obtained from History obtained from: Patient - Additonal information Additional information: 22yM presents a second time tonight after being seen here for multiple falls related to alcohol. he has been heavily drinking since his sister committed suicide 5 days ago. patient hit his head in shower earlier this evening and had head and neck ct that was negative. he then was discharged, had friend from [facility] pick him up, and went home to continue drinking. ems was again called. Review of Systems Unable to obtain: Intoxicated PD PAST MEDICAL HISTORY - Past Medical History Past Medical History: Yes Neuro: Seizure disorder Psych: Depression, Anxiety - Past Surgical History Past Surgical History: Yes HEENT: Tonsil/Adenoidectomy - Present Medications Home Medications: Ambulatory Orders Medication Instructions Recorded Confirmed Buspirone HCl 10 mg PO BID 07/01/22 07/02/22 Fluoxetine HCl 60 mg PO DAILY 07/01/22 07/02/22 Loperamide [Imodium] 4 mg PO TID PRN 07/01/22 07/02/22 - Allergies Allergies/Adverse Reactions: Allergies Allergy/AdvReac Type Severity Reaction Status Date / Time Sulfa (Sulfonamide AdvReac Unknown Verified 07/02/22 01:47 Antibiotics) - Social History Does the pt smoke?: No Smoking Status: Never smoker Does the pt drink ETOH?: Yes Does the pt have substance abuse?: No - Immunizations Immunizations are current?: Yes - POLST Patient has POLST: No PD ED PE NORMAL - Vitals Vital signs reviewed: Yes - General General: Other (agitated delirium) - HEENT HEENT: Atraumatic, PERRL, EOMI, Moist mucous membranes, Pharynx benign - Neck Neck: Supple, no meningeal sign - Cardiac Cardiac: RRR - Respiratory Respiratory: No respiratory distress, Clear bilaterally - Abdomen Abdomen: Non tender, Non distended - Back Back: No spinal TTP - Derm Derm: Normal color, Warm and dry, Other (abrasions to forehead and left abdomen) - Neuro Neuro: No motor deficit, No sensory deficit, Other (agitated delirium) - Psych Psych: Other (intoxicated, agitated delirium) Results - Vitals Vitals: Vital Signs - 24 hr 07/02/22 07/02/22 07/02/22 01:35 02:30 02:32 Temperature 36.3 C L Heart Rate 122 H 105 H 121 H Respiratory 28 H 12 143 H Rate Blood Pressure 132/79 H 124/78 O2 Saturation 97 99 65 L If not protocol 5 5 : Oxygen Flow, liters/minute 07/02/22 07/02/22 07/02/22 02:34 02:37 02:40 Temperature Heart Rate 112 H 113 H 119 H Respiratory 17 20 16 Rate Blood Pressure 140/76 H 140/76 H 140/90 H O2 Saturation 96 97 97 If not protocol 15 97 15 : Oxygen Flow, liters/minute 07/02/22 07/02/22 07/02/22 02:52 03:02 03:13 Temperature Heart Rate 107 H 98 97 Respiratory 14 15 19 Rate Blood Pressure 140/90 H 131/83 H 131/83 H O2 Saturation 99 100 100 If not protocol 15 2 2 : Oxygen Flow, liters/minute 07/02/22 07/02/22 07/02/22 03:23 03:45 04:05 Temperature 36.8 C 36.3 C L -12.3 C L Heart Rate 92 97 99 Respiratory 16 18 124 H Rate Blood Pressure 131/83 H 127/76 124/80 O2 Saturation 100 99 99 If not protocol 2 2 2 : Oxygen Flow, liters/minute 07/02/22 07/02/22 07/02/22 04:20 04:35 04:50 Temperature 36.9 C Heart Rate 104 H 103 H 125 H Respiratory 20 17 16 Rate Blood Pressure 150/105 H 131/83 H 120/64 O2 Saturation 96 99 95 If not protocol 2 2 2 : Oxygen Flow, liters/minute 07/02/22 07/02/22 07/02/22 05:05 06:05 06:35 Temperature 37.0 C 37.1 C Heart Rate 114 H 93 91 Respiratory 17 18 16 Rate Blood Pressure 129/76 130/53 L 137/83 H O2 Saturation 96 100 99 If not protocol : Oxygen Flow, liters/minute Oxygen O2 Source Room air Oxygen Flow Rate 5 - Labs Labs: Laboratory Tests 07/02/22 07/02/22 07/02/22 02:05 02:05 02:05 WBC 11.7 H RBC 5.36 Hgb 15.8 Hct 46.6 MCV 86.9 MCH 29.5 MCHC 33.9 RDW 13.7 Plt Count 333 MPV 9.8 Neut # (Auto) 10.7 H Lymph # (Auto) 0.4 L [place] # (Auto) 0.6 Eos # (Auto) 0.0 Baso # (Auto) 0.0 Absolute Nucleated RBC 0.00 Nucleated RBC % 0.0 Sodium 137 Potassium 3.6 Chloride 93 L Carbon Dioxide 21 Anion Gap 23.0 H BUN 14 Creatinine 0.9 Estimated GFR (MDRD) 106 Glucose 150 H Calcium 8.7 Total Bilirubin 0.8 AST 101 H ALT 48 Alkaline Phosphatase 79 Total Protein 8.4 H Albumin 5.1 Globulin 3.3 Albumin/Globulin Ratio 1.5 Lipase 47 TSH 0.94 Salicylates < 6.0 Acetaminophen < 10 L Ethyl Alcohol 446.3 SARS-CoV-2 (PCR) 07/02/22 03:18 WBC RBC Hgb Hct MCV MCH MCHC RDW Plt Count MPV Neut # (Auto) Lymph # (Auto) [place] # (Auto) Eos # (Auto) Baso # (Auto) Absolute Nucleated RBC Nucleated RBC % Sodium Potassium Chloride Carbon Dioxide Anion Gap BUN Creatinine Estimated GFR (MDRD) Glucose Calcium Total Bilirubin AST ALT Alkaline Phosphatase Total Protein Albumin Globulin Albumin/Globulin Ratio Lipase TSH Salicylates Acetaminophen Ethyl Alcohol SARS-CoV-2 (PCR) NOT DETECTED PD MEDICAL DECISION MAKING - ED course ED course: 22-year-old man presented a second time for alcohol intoxication and disruptive behavior. Patient swearing actively in the emergency department. He was seen h ere earlier tonight and discharged, continue drinking alcohol and his friend called EMS again. He was brought to the emergency department and was repeatedly trying to get up out of bed and presented a danger to self. He has already fallen multiple times in the past couple days.Attempted to redirect the patient, offered water, tried to modify environment and deescalate without response. patient was uncooperative, presenting danger to self and to staff, attempting to continually get up out of bed and cursing at staff. Soft restraints applied to bilateral upper extremities and 160 of IM ketamine administered with RT Acevedo at bedside. Patient had an immediate response to ketamine and briefly experienced drop in pulse oximetry to low 80s requiring application of [id number] for a few minutes. He is now breathing spontaneously on 4L nasal cannula as of 2:50 AM, protecting airway, responding to verbal commands, with pulse ox 99% and respiratory rate 20. Blood pressure remains with MAP 70-80 throughout. Initially with mild tachycardia in 110s, now improved to 90-100 on monitor. will continue to monitor. Note: 4am - patient now awake and alert once more, sitting up in bed, agitated, intermittently compliant, trying to escape restraints. confused, danger to self and to staff. switched from soft restraints to four point leather restraints for patient safety. see restraint face to face documentation. 6:30am - patient AOX4, now compliant and apologetic. restraints removed. resting quietly in bed awaiting social work eval. will endorse to incoming daytime ED MD Dr. Monsivais. Departure - Departure Clinical Impression: Alcohol abuse, Depression Condition: Stable Instructions: Alcoholism, ED Depression
[2022-07-02] MEDS ORDERED: KETAMINE 500 MG/10 ML VIAL IVP STA (02:13)
[2022-07-02] MEDS ORDERED: ONDANSETRON 4 MG/2 ML VIAL IVP STA ×2 (02:13→05:17)
[2022-07-02 02:16] LABS: BASOPHILS % (AUTO) 0.1 %; EOSINOPHILS % (AUTO) 0.1 %; HCT - HEMATOCRIT 46.6 % (42.0-52.0); HGB - HEMOGLOBIN 15.8 g/dL (14.0-18.0); LYMPHOCYTES # (AUTO) 0.4 10^3/uL (1.5-3.5); LYMPHOCYTES % (AUTO) 3.6 %; MEAN CORPUSCULAR HEMOGLOBIN 29.5 pg (27.0-31.0); MEAN CORPUSCULAR HGB CONC 33.9 g/dL (32.0-36.0); MEAN CORPUSCULAR VOLUME 86.9 fL (80.0-94.0); MEAN PLATELET VOLUME 9.8 fL (7.4-11.4); MONOCYTES # (AUTO) 0.6 10^3/uL (0.0-1.0); MONOCYTES % (AUTO) 4.9 %; NEUTROPHILS # (AUTO) 10.7 10^3/uL (1.5-6.6); NEUTROPHILS % (AUTO) 90.9 %; PLT - PLATELET COUNT 333 10^3/uL (130-450); RED BLOOD COUNT 5.36 10^6/uL (4.70-6.10); RED CELL DISTRIBUTION WIDTH 13.7 % (12.0-15.0); WHITE BLOOD COUNT 11.7 x10^3/uL (4.8-10.8)
[2022-07-02 02:32] LABS: ACETAMINOPHEN < 10 ug/mL (10-30); ALBUMIN 5.1 g/dL (3.2-5.5); ALBUMIN/GLOBULIN RATIO 1.5 (1.0-2.2); ALKALINE PHOSPHATASE 79 IU/L (42-121); ALT ALANINE AMINOTRANSFERASE 48 IU/L (10-60); AST ASPARTATE AMINOTRANSFERASE 101 IU/L (10-42); BILIRUBIN,TOTAL 0.8 mg/dL (0.2-1.0); BUN - BLOOD UREA NITROGEN 14 mg/dL (6-20); CALCIUM 8.7 mg/dL (8.5-10.3); CARBON DIOXIDE - CO2 21 mmol/L (21-32); CHLORIDE 93 mmol/L (101-111); CREATININE 0.9 mg/dL (0.6-1.2); ETOH - ETHANOL 446.3 mg/dL; GFR - MDRD 106 (>89); GLUCOSE 150 mg/dL (70-100); LIPASE 47 U/L (22-51); POTASSIUM 3.6 mmol/L (3.5-5.0); SALICYLATE < 6.0 mg/dL; SODIUM 137 mmol/L (135-145); TOTAL PROTEIN 8.4 g/dL (6.7-8.2)
[2022-07-02] MEDS ORDERED: KETAMINE 500 MG/10 ML VIAL IM STA (02:48)
--- NOTE | 2022-07-02 02:53 | ED Physician Documentation ---
Restraint [id number] - Immediate Situation Face to Face Evaluation Date: 07/02/22 Face to Face Evaluation Time: 03:30 Restraint Classification: Violent, chemical w/ physical hold Restraint Type: Soft extremity - Patient's Reaction & Behaviors Safety: Physically safe Verbal: Asking for information, Swearing Harm: Actual harm to self, Potential harm to self Physical: Fighting restraints Other: Disruption of therapy - Behavioral Condition Attitude: Other (intoxicated with alcohol, labile affect) Behavior: Other (intermittently uncooperative, trying to get out of bed) Orientation: Person Mood: Labile - Evaluation Review of Systems: unable to obtain 2/2 patient uncooperative Pertinent History/Illicit Drugs/Medications/Results: See main ED document - Plan Need to Continue or Terminate Violent or Chemical Restraint: Will discontinue when safe.
--- NOTE | 2022-07-02 04:08 | ED Physician Documentation ---
Restraint [id number] - Immediate Situation Face to Face Evaluation Date: 07/02/22 Face to Face Evaluation Time: 04:00 Restraint Classification: Violent, physical Restraint Type: Locked extremity, Side rails X 4 - Patient's Reaction & Behaviors Safety: Physically safe, Non-compliant, Unable to Follow Commands Verbal: Demanding, Swearing Harm: Actual harm to self (abrasions to face and body from prior falls. ), Potential harm to self, Potential harm to others Physical: Fighting restraints Other: Disruption of therapy - Behavioral Condition Attitude: Other (confused) Behavior: Agitated Orientation: Person Mood: Labile - Evaluation Review of Systems: unable to obtain 2/2 patient uncooperative Pertinent History/Illicit Drugs/Medications/Results: alcohol intoxication - see main ED documentation - Plan Need to Continue or Terminate Violent or Chemical Restraint: Will discontinue when safe.
[2022-07-02 07:36] LABS: MUDS CUTOFF CONCENTRATIONS CUTOFF CONC BELOW:
[2022-07-02] MEDS ORDERED: ONDANSETRON ODT 4 MG TABLET TL STA (07:44)
[2022-07-02 07:46] LABS: BILIRUBIN,URINE NEGATIVE (NEGATIVE); GLUCOSE, URINE (UA) NEGATIVE (NEGATIVE); KETONES,URINE (UA) 40 mg/dL (NEGATIVE); LEUKOCYTE ESTERASE, URINE NEGATIVE (NEGATIVE); NITRITE,URINE NEGATIVE (NEGATIVE); OCCULT BLOOD,URINE LARGE (NEGATIVE); PROTEIN,URINE 100 mg/dL (NEGATIVE); UROBILINOGEN,URINE 0.2 (NORMAL) E.U./dL (NORMAL)
[2022-07-02 07:54] LABS: AMPHETAMINE SCREEN,URINE NEGATIVE (NEGATIVE); BARBITURATE SCREEN,UR NEGATIVE (NEGATIVE); BENZODIAZEPINES SCREEN, URINE NEGATIVE (NEGATIVE); CLARITY,URINE CLEAR (CLEAR); COCAINE SCREEN URINE NEGATIVE (NEGATIVE); METHADONE SCREEN, URINE NEGATIVE (NEGATIVE); METHAMPHETAMINES SCREEN, URINE NEGATIVE (NEGATIVE); OPIATE SCREEN, URINE NEGATIVE (NEGATIVE); OXYCODONE SCREEN, URINE NEGATIVE (NEGATIVE); PROPOXYPHENE SCREEN, URINE NEGATIVE (NEGATIVE); THC CANNABINOID SCREEN, URINE NEGATIVE (NEGATIVE); TRICYCLIC ANTIDEPRESSANT,URINE NEGATIVE (NEGATIVE)
[2022-07-02 07:57] LABS: BACTERIA,URINE Few /HPF (None Seen); CASTS, URINE 3-5 Hyaline Casts /LPF; SQUAMOUS EPITHELIAL CELL,UR RARE Squamous (<= Few); WBC,URINE 0-3 /HPF (0-3)
[2022-07-02] MEDS ORDERED: FAMOTIDINE 20 MG/2 ML VIAL IVP STA (08:03)
[2022-07-02] MEDS ORDERED: MAG HYDROX/AL HYDROX/SIMETH 30 ML UDC PO STA (08:03)
[2022-07-02 10:09] VITALS: BP 124/64
[2022-07-02] MEDS ORDERED: LORazepam 2 MG/ML VIAL IVP STA (10:37)
--- NOTE | 2022-07-02 11:28 | ED Physician Documentation ---
ED Addendum - Addendum Addendum: 07/02/22 11:26 The patient is awake alert and conversant. He states he feels a little bit lightheaded/inebriated. At this point when I see him he is still likely to be around 300 blood alcohol level. He does admit to having been increasing alcohol use since about February up to 5-6 beers a day which she admits to. Then the increased amount the last 6 days with the acute grief reaction with the sister dying. He does wish to cut down and stop the alcohol use. He states [place] [employer] [place] type group. His command will certainly being contact with him because of the hospitalization with alcohol. He denies any suicidal ideation or homicidal ideation. No doubt he will have some withdrawal type symptoms. He is also been having insomnia. I can prescribe him short-term medication to help with these symptoms. Social work talked with him and gave him some reference. He will be in touch with his command and they will come pick him up from the ER. [place] for [place] reaction. 07/02/22 11:28 Disposition the patient discharged home in stable condition Diagnoses: 1. Altered mentation and behavior 2. Alcohol intoxication 3. Alcohol abuse 4. Acute grief reaction
== END 2022-07-02 12:18 | disposition home or self-care (01) ==
LOC: EDUNIT# → ED 01:36
DX: F10.129 Alcohol abuse with intoxication, unspecified (principal); F32.A Depression, unspecified; Z78.1 Physical restraint status; Z20.822 Contact with and (suspected) exposure to COVID-19
CPT/HCPCS: 36415; 80053; 80306; 80307; 80320; 80329; 81001; 83690; 84443; 85025; 87635; 99281; 99285; A9270; J2060; Q0162; 81003; 87086

== ENCOUNTER 2022-07-11 12:58 | Emergency (ER) | payer OTHER ==
--- OUTSIDE RECORDS SUMMARY | 2022-07-11 13:19 | EXTERNAL MEDICAL SUMMARY RPT | Continuity of Care Document ---
:2000 Author Organization [facility] Address [address] [phone] Phone Care Team Providers Name Role Phone Unavailable Unavailable Unavailable Joey Chavarria, Jaison Unavailable Unavailable Jody Chavarria, Ronaldo Unavailable Unavailable Allergies and Intolerances date description facility type (no date) [facility] All (unknown) Encounters No information. Functional Status No information. Immunizations No information. Medications date description facility [id number]+0000 zolpidem All 44843793617142+0000 zolpidem All 05097066563972+0000 ondansetron All 11678426228762+0000 ondansetron All 22922688321653+0000 loperamide All 60804140863006+0000 loperamide All 63808309627335+0000 zolpidem All 60793575864927+0000 zolpidem All 81679086673227+0000 loperamide All 20060331417458+0000 loperamide All 19176210275623+0000 ondansetron All 51333577830368+0000 ondansetron All 61573986195182+0000 loperamide All 49564657852023+0000 loperamide All 84518705958665+0000 ondansetron All 60554730106163+0000 ondansetron All 74542876925646+0000 zolpidem All 42559375852216+0000 zolpidem All 26012697371363+0000 ondansetron All 81826756342015+0000 ondansetron All 34187032755662+0000 zolpidem All 41828486466151+0000 zolpidem All Problems No information. Procedures date description facility 59080112129126+0000 Visit Code Hold All 19249344714266+0000 Visit Code Hold All 95758528677149+0000 Visit Code Hold All 81601925650149+0000 COVID, FLU A+B Antigen (In Clinic Free Test) All Results/Labs No information. Social History date description facility 54928253150688+0000 Unknown if ever smoked All 21009568819988+0000 Unknown if ever smoked All 67236390853706+0000 Unknown if ever smoked All 72748243122343+0000 Unknown if ever smoked All Vital Signs date measurement value units 65333705886942+0000 BMI BMI 24.51 kg/m2 47188186241672+0000 BP_diastolic BP_diastolic 92 mmHg 18228176529946+0000 BP_systolic BP_systolic 146 mmHg 39008621975571+0000 heart_rate heart_rate 65 /min 19910069494602+0000 height_metric height_metric 177.8 cm 32358098890129+0000 height_standard height_standard 70 in 12107087240829+0000 respiration_rate respiration_rate 16 /min 92991877342783+0000 temperature_metric temperature_metric 36.78 C 54079114909472+0000 temperature_standard temperature_standard 9 8.2 F 49757778788213+0000 weight_metric weight_metric 77.2 kg 97359396986023+0000 weight_standard weight_standard 170.2 lb 10990673276997+0000 BMI BMI 25.92 kg/m2 86353350762959+0000 BP_diastolic BP_diastolic 80 mmHg 57199991387410+0000 BP_systolic BP_systolic 145 mmHg 16728867712068+0000 heart_rate heart_rate 66 /min 41259342239209+0000 height_metric height_metric 177.8 cm 09538151223768+0000 height_standard height_standard 70 in 57608336562098+0000 respiration_rate respiration_rate 16 /min 62774943607443+0000 temperature_metric temperature_metric 37.33 C 43593929132759+0000 temperature_standard temperature_standard 9 9.2 F 46022366162686+0000 weight_metric weight_metric 81.65 kg 63365720396652+0000 weight_standard weight_standard 180 lb
[2022-07-11 13:50] VITALS: BP 132/83
== END 2022-07-11 15:42 | disposition left against medical advice (07) ==
LOC: ED 12:58
DX: Z53.21 Procedure and treatment not carried out due to patient leaving prior to being seen by health care provider (principal)

== ENCOUNTER 2022-09-13 15:20 | Outpatient (CLI) | payer OTHER ==
[2022-09-13 15:42] VITALS: BP 130/64
--- NOTE | 2022-09-13 15:42 | SLEEP CARE CONSULTATION ---
Information from patient questionnaire entered by Dang Keating. I have reviewed and concur with the information entered by Dang Keating. This document represents the service I personally performed and the decisions made by , Lina Elizalde ARNP. History of Present Illness Service Date and Time: 09/13/2022 1520 Initial [place] Sleepiness Scale score: 3 (10-3-22) Current [place] Sleepiness Scale score: 5 (09/13/22) Additional HPI information: CHANDLER BURGESS returns for follow up and results of the recently performed polysomnography. The patient was informed of the following findings: No significant sleep disordered breathing with an average AHI of 4.8 and rocael oxygen saturation of 91%. His supine AHI was elevated at 5.5. I explained the pathophysiology behind obstructive sleep apnea. Patient does not have sleep apnea and was advised how weight gain could increase the risk of developing sleep apnea in the future. I strongly encouraged the patient to lose weight. Patient does not have significant sleep disordered breathing but has elevated AHI in supine position so advised positional therapy. Methods to achieve positional management therapy were discussed; such as, positioning with pillows, wearing a T-shirt with tennis balls sewn into the back and commercially available products. Patient counseled not drink alcohol less than 4 hours before bedtime as it can increase snoring and apnea. Patient was cautioned about risks of drowsy driving until sleepiness symptoms resolve. Patient denies drowsy driving. Sleep Study - Results Type of Sleep Study: Polysomnography (COMPLETED 06/05/22) Prior sleep studies: No Polysomnography/Home Sleep Study results: IMPRESSION: The quality of the study is good. The patient had minimally reduced sleep efficiency. The sleep architecture was abnormal for sleep fragmentation and reduced amount of time spent in REM and slow wave sleep (N3). Respiratory monitoring showed no significant sleep disordered breathing (AHI = 4.8) or hypoxia (rocael oxygen saturation of 91%). The few central apneas occurred more frequently during supine sleep (supine AHI = 5.5; non-supine = 4.17). No audible snore. There was no significant periodic leg movement of sleep. Cardiac rhythm was normal sinus rhythm without significant arrhythmia. No abnormal behavior (parasomnia) observed during the night. Allergies and Home Medications Drug allergies reviewed: Yes (Sulfa antibiotics) Home medication list reviewed: Yes (no changes) Review of Systems Review of systems same as previous: Yes (no changes) Physical Exam Vital signs obtained and entered by: DANG Walden MA Blood Pressure: 130/64 (LEFT ARM) Cuff size: regular Heart Rate: 65 O2 Saturation: 7 Height: 5 ft 11 in Weight: 189 lb 6.4 oz Body Mass Index: 26.4 BMI Classification: Overweight Impression and Plan 1. Possible REM behavior/parasomnias. Patient PSG showed no significant sleep disordered breathing but he does have elevated supine AHI at 5.5 and was advised to avoid sleeping on his back. He was not found to have any periodic leg movements or parasomnias during the sleep study. Patient was reassured that there was no significant findings of any issues. Parasomnias are sometimes more prevalent in younger individuals and they may improve as he gets older. They can be aggravated by insufficient sleep and he should try to get adequate sleep of 7-9 hours sleep nightly. He may also try melatonin 5 mg at night which can reduce incidence of parasomnias (arm and leg movements) if they are troublesome. He voiced understanding. * Avoid sleeping supine * Attempt to lose weight * Avoid alcohol consumption near bedtime * Return as needed for follow up. Counseling Topics: Weight loss health impact Visit Type: In Office Time Spent with Patient (minutes): 10 Provider Statement: I spent 100% of the Face to Face Visit with the patient with greater than 50% spent counseling the patient and coordination of care.
== END 2022-09-13 15:21 | disposition home or self-care (01) ==
LOC: SC 15:20
PROVIDERS: ATTEND Nurse Practitioner Family
DX: G47.10 Hypersomnia, unspecified (principal); F51.3 Sleepwalking [somnambulism]; G47.8 Other sleep disorders
CPT/HCPCS: 99212